=== PATIENT | male | born 1960 | race African-American/Black ===

== ENCOUNTER 2023-09-29 00:17 | Emergency (ER) | payer SELFPAY ==
[~2023-09-29] VITALS: Ht 154.9 cm; Wt 63.0 kg
[2023-09-29 00:25] VITALS: TEMP 98.1; O2SAT 97
[2023-09-29] MEDS ORDERED: MELO-104 MT (01:26)
[2023-09-29] MEDS ORDERED: TOPUD PO (01:26)
[2023-09-29] MEDS ORDERED: DICL100G58 TP (01:26)
[2023-09-29] MEDS: KETOROLAC 30MG/ML VIAL IM ONE (02:05)
[2023-09-29 02:11] VITALS: BP 130/74; PULSE 80; RESP 16
== END 2023-09-29 02:11 | disposition home or self-care (01) ==
LOC: ER 00:17
DX: G89.29 Other chronic pain (principal); M25.562 Pain in left knee; M25.561 Pain in right knee
CPT/HCPCS: 99283; 73562; 96372; J1885

== ENCOUNTER 2024-03-01 00:03 | Emergency (ER) | payer MEDICARE, MEDICAID ==
[~2024-03-01] VITALS: Ht 152.4 cm; Wt 58.0 kg
[~2024-03-01 00:03] MED LIST: DICL100G58 TP; MELO-104 MT; TOPUD PO
[2024-03-01 00:44] VITALS: O2SAT 100
[2024-03-01 01:21] LABS: HEMATOCRIT. 33.4 % (42.0-52.0); HEMOGLOBIN. 10.9 g/dL (14.0-18.0); MEAN CORPUSCULAR HEMOGLOBIN 34.2 pg (28.0-32.0); MEAN CORPUSCULAR HGB CONC 32.8 g/dL (31.0-37.0); MEAN CORPUSCULAR VOLUME 104.3 fL (80.0-94.0); MEAN PLATELET VOLUME 7.1 fl (7.4-10.4); PLATELET 166 x1000/uL (130-400); RED CELL DISTRIBUTION WIDTH 20.3 % (11.6-14.6); WHITE BLOOD COUNT 6.8 x1000/uL (4.5-11.0)
[2024-03-01 01:40] LABS: CHLORIDE 102 mEq/L (98-107); SODIUM 137 mEq/L (136-145)
[2024-03-01 01:41] LABS: CALCIUM 9.9 mg/dL (8.7-10.4); CARBON DIOXIDE 25 mEq/L (21-32)
[2024-03-01 01:46] LABS: GLUCOSE 170 mg/dL (70-105); TROPONIN I HIGH SENSITIVITY 9 ng/L (3.0-53); UREA NITROGEN BLOOD 17 mg/dL (9-23)
[2024-03-01 01:47] LABS: AMMONIA < 17 uMol/L (<32)
[2024-03-01 01:48] LABS: ACETAMINOPHEN < 2 ug/mL (10-30); CREATINE KINASE 91 IU/L (46-171)
[2024-03-01 01:49] LABS: ETHANOL BLOOD < 10 mg/dL (<10)
[2024-03-01 01:54] LABS: DIFFERENTIAL COMMENT 1
[2024-03-01 03:24] LABS: NUCLEATED RED BLOOD CELLS 2 /100 WBC; PLATELET ESTIMATE NORMAL
[2024-03-01] MEDS ORDERED: SODIUM CHLORIDE 0.9% 1,000 ML IV NR (03:30)
[2024-03-01 05:10] VITALS: BP 107/79; PULSE 92; RESP 16; TEMP 36.83628; O2SAT 98
== END 2024-03-01 06:40 | disposition left against medical advice (07) ==
LOC: ER 00:03 → EDBEDREQTM 04:24 → EDBEDREQ 04:24 → ER 06:40 → CANBEDREQ 07:40
DX: S12.110A Anterior displaced Type II dens fracture, initial encounter for closed fracture (principal); R62.7 Adult failure to thrive; I49.9 Cardiac arrhythmia, unspecified; Z00.00 Encounter for general adult medical examination without abnormal findings; X58.XXXA Exposure to other specified factors, initial encounter; Y93.89 Activity, other specified; Y92.89 Other specified places as the place of occurrence of the external cause; Y99.8 Other external cause status
CPT/HCPCS: 36415; 71045; 80048; 80307; 80320; 80329; 82140; 82550; 83880; 84484; 85025; 93005; 99285; G0480

== ENCOUNTER 2024-07-19 14:23 | Emergency (ER) | payer OTHER, MEDICAID ==
[~2024-07-19] VITALS: Ht 170.2 cm; Wt 82.0 kg
[2024-07-19 14:26] VITALS: O2SAT 95
[2024-07-19 15:40] LABS: LACTIC ACID 2.1 mmol/L (0.4-2.0)
[2024-07-19] MEDS: SODIUM CHLORIDE 0.9% (SEPSIS BOLUS) IV ONE (15:42)
[2024-07-19 15:43] LABS: BASOPHILS % 1.1 % (0.0-2.0); EOSINOPHILS % 2.8 % (0.0-5.0); HEMATOCRIT. 31.4 % (42.0-52.0); HEMOGLOBIN. 10.9 g/dL (14.0-18.0); LYMPHOCYTES % 38.7 % (20.0-50.0); MEAN CORPUSCULAR HEMOGLOBIN 33.9 pg (28.0-32.0); MEAN CORPUSCULAR HGB CONC 34.7 g/dL (31.0-37.0); MEAN CORPUSCULAR VOLUME 97.6 fL (80.0-94.0); NEUTROPHILS % 53.4 % (40.0-76.0); PLATELET 337 x1000/uL (130-400); RED BLOOD CELL COUNT 3.21 mill/uL (4.7-6.1); RED CELL DISTRIBUTION WIDTH 16.9 % (11.6-14.6); WHITE BLOOD COUNT 3.8 x1000/uL (4.5-11.0)
[2024-07-19 15:53] LABS: PROTHROMBIN TIME 11.2 sec (9.6-11.0)
[2024-07-19 15:55] LABS: CHLORIDE 113 mEq/L (98-107); POTASSIUM 4.1 mEq/L (3.5-5.1); SODIUM 141 mEq/L (136-145)
[2024-07-19 15:56] LABS: CALCIUM 9.1 mg/dL (8.7-10.4); CARBON DIOXIDE 23 mEq/L (21-32)
[2024-07-19 16:01] LABS: GLUCOSE 92 mg/dL (70-105); UREA NITROGEN BLOOD 8 mg/dL (9-23)
[2024-07-19 16:03] LABS: ALANINE AMINOTRANSFERASE 18 IU/L (10-49); ALBUMIN 3.9 g/dL (3.2-4.8); ASPARTATE AMINOTRANSFERASE 26 IU/L (<34)
[2024-07-19 16:04] LABS: BILIRUBIN DIRECT < 0.1 mg/dL (<=3.0); BILIRUBIN TOTAL 0.3 mg/dL (0.1-1.0)
[2024-07-19 16:10] LABS: CREATININE 1.8 mg/dL (0.6-1.3); TROPONIN I HIGH SENSITIVITY < 4 ng/L (3.0-53)
[2024-07-19] MEDS: CEFTRIAXONE 1GM/50ML 50 ML IV ONE (16:47)
[2024-07-19] MEDS: METOCLOPRAMIDE HCL 10MG/2ML VIAL IV ONE (16:48)
[2024-07-19] MEDS: NOREPINEPHRINE 8MG/250ML PMX 250 ML IV ONE (17:11)
[2024-07-19] MEDS: AZITHROMYCIN 500MG/250ML 250 ML IV ONE (18:08)
[2024-07-19] MEDS ORDERED: ONDANSETRON HCL 4MG/2ML INJ IV PRN (19:45)
[2024-07-19] MEDS ORDERED: ACETAMINOPHEN 325MG TABLET PO PRN (19:45)
[2024-07-19] MEDS ORDERED: QUET300T20 PO (19:55)
[2024-07-19] MEDS ORDERED: MAGN400T26 PO (19:55)
[2024-07-19] MEDS ORDERED: ASCO500T20 PO (19:55)
[2024-07-19] MEDS ORDERED: FERR324T4 PO (19:55)
[2024-07-19] MEDS ORDERED: CYAN500T9 PO (19:55)
[2024-07-19] MEDS ORDERED: MULT-1318 PO (19:55)
[2024-07-19] MEDS ORDERED: DULO60CA64 PO (19:55)
[2024-07-19 20:44] LABS: THYROID STIMULATING HORMONE 2.69 uIU/mL (0.55-4.78)
[2024-07-19] MEDS ORDERED: MEDICATION NOT ON FORMULARY EA (Quetiapine Fumarate 1 TAB) PO SCH (21:00)
[2024-07-19] MEDS ORDERED: QUETIAPINE FUMARATE 200MG TABLET PO SCH (21:00)
[2024-07-19 21:05] VITALS: BP 106/73; PULSE 64; RESP 19; TEMP 36.8; O2SAT 97
[2024-07-20] MEDS ORDERED: CYANOCOBALAMIN 1000MCG TABLET PO SCH (09:00)
[2024-07-20] MEDS ORDERED: MAGNESIUM OXIDE 400MG TABLET PO SCH (09:00)
[2024-07-20] MEDS ORDERED: MEDICATION NOT ON FORMULARY EA (Ferrous Sulfate 1 TAB) PO SCH (09:00)
[2024-07-20] MEDS ORDERED: PANTOPRAZOLE SODIUM 40 MG/VIAL IV SCH (09:00)
[2024-07-20] MEDS ORDERED: DULOXETINE HCL 60MG DR CAPSULE PO SCH (09:00)
[2024-07-20] MEDS ORDERED: FERROUS SULFATE 325MG TABLET PO SCH (09:00)
[2024-07-20] MEDS ORDERED: MULTIVITAMINS,THER W-MINERALS TABLET PO SCH (09:00)
[2024-07-20] MEDS ORDERED: ASCORBIC ACID 500 MG TABLET PO SCH (09:00)
[2024-07-20] MEDS ORDERED: CYANOCOBALAMIN PO SCH (09:00)
[2024-07-20] MEDS ORDERED: CEFTRIAXONE 1GM/50ML 50 ML IV SCH (16:30)
[2024-07-20] MEDS ORDERED: AZITHROMYCIN 500MG/250ML 250 ML IV SCH (18:00)
== END 2024-07-19 21:15 | disposition left against medical advice (07) ==
LOC: ER 14:23 → ENRESERV 16:46 → CANRESERV 16:46 → EDBEDREQSVC 17:36 → ER 21:15
DX: S12.110A Anterior displaced Type II dens fracture, initial encounter for closed fracture (principal); S09.90XA Unspecified injury of head, initial encounter; A41.9 Sepsis, unspecified organism; R65.21 Severe sepsis with septic shock; J18.9 Pneumonia, unspecified organism; D64.9 Anemia, unspecified; F10.90 Alcohol use, unspecified, uncomplicated; Z79.899 Other long term (current) drug therapy; W19.XXXA Unspecified fall, initial encounter; Y93.89 Activity, other specified; Y92.89 Other specified places as the place of occurrence of the external cause; Y99.8 Other external cause status; Y90.9 Presence of alcohol in blood, level not specified
CPT/HCPCS: 99291; 70450; 96365; 96367; 96361; 96375; 80061; 80076; 80048; 83036; 83880; 83605; 84443; 85025; 85610; 86850; 86900; 86901; 87040; 84484; 36415; 84145; 71045; 72125; 93005; J0456; J0696; J3490; J2765; J7030

== ENCOUNTER 2025-01-08 18:03 | Emergency (ER) | payer MEDICARE, MEDICAID ==
[~2025-01-08] VITALS: Ht 167.6 cm; Wt 65.0 kg
[~2025-01-08 18:03] MED LIST changes: +ASCO500T20 PO; +CYAN500T3 PO; +DULO60CA64 PO; +FERR324T4 PO; +MAGN400T26 PO; +MULT-1318 PO; +QUET300T20 PO
[2025-01-08 18:05] VITALS: O2SAT 100
[2025-01-08] MEDS: KETOROLAC 15MG/ML VIAL IM ONE (18:59)
[2025-01-08] MEDS: CYCLOBENZAPRINE 10MG TABLET PO ONE (18:59)
[2025-01-08] MEDS ORDERED: NAPR-1486 MT (20:21)
[2025-01-08 20:30] VITALS: BP 142/75; PULSE 60; RESP 18; TEMP 37.1; O2SAT 100
== END 2025-01-08 20:48 | disposition home or self-care (01) ==
LOC: ER 18:03
DX: M54.50 Low back pain, unspecified (principal); M54.2 Cervicalgia; R51.9 Headache, unspecified; I67.82 Cerebral ischemia; Z79.1 Long term (current) use of non-steroidal anti-inflammatories (NSAID); Z79.899 Other long term (current) drug therapy
CPT/HCPCS: 99285; 70450; 72125; 72131; 96372; J1885